=== PATIENT | male | born 1940 ===

== ENCOUNTER 2022-08-12 08:47 | Outpatient (CLI) | payer OTHER | END 2022-08-12 08:48 | disposition home or self-care (01) | LOC: LAB 08:47 | PROVIDERS: ATTEND Urology | DX: R31.1 Benign essential microscopic hematuria (principal) ==

== ENCOUNTER 2022-08-12 09:18 | Outpatient (CLI) | payer OTHER | END 2022-08-12 09:26 | disposition home or self-care (01) | LOC: TOM 09:18 | PROVIDERS: ATTEND Urology | DX: N13.1 Hydronephrosis with ureteral stricture, not elsewhere classified (principal); N20.0 Calculus of kidney ==